=== PATIENT | male | born 1945 | race Caucasian/White ===

== ENCOUNTER → 2017-05-02 | Outpatient (CLI) | payer OTHER, MEDICARE ==
[2017-05-02 11:08] LABS: HEMATOCRIT 45.5 % (42-52); MEAN CORPUSCULAR HGB CONC 34.3 g/dl (32-36); MEAN PLATELET VOLUME 10.3 fL (7.4-10.4); PLATELET COUNT 308 K/uL (130-400); RED BLOOD COUNT 4.46 M/uL (4.7-6.1); WHITE BLOOD COUNT 4.54 K/uL (4.8-10.8)
[2017-05-02 11:43] LABS: ESTIMATED AVERAGE GLUCOSE 108 mg/dl; HA1C FLAG Normal (Normal)
[2017-05-02 12:06] LABS: ALT/SGPT 26 U/L (12-78); AST/SGOT 22 U/L (15-37); BLOOD UREA NITROGEN 11 mg/dl (7-18); BUN/CREATININE RATIO 15.1 (10-20); CALCIUM 8.7 mg/dl (8.5-10.1); CARBON DIOXIDE 25 mmol/L (21-32); CHLORIDE 107 mmol/L (98-107); CREATININE 0.74 mg/dl (0.60-1.40); GLUCOSE 97 mg/dl (70-99); POTASSIUM 4.4 mmol/L (3.5-5.1); SODIUM 139 mmol/L (136-145)
[2017-05-02 12:19] LABS: CHOLESTEROL 199 mg/dl (0-200); CHOLESTEROL/HDL RATIO 3.6; HDL CHOLESTEROL 56 mg/dl; LDL CHOLESTEROL CALCULATED 120 mg/dl; PROSTATE SPECIFIC ANTIGEN 0.623 ng/ml (0.000-4.000); TRIGLYCERIDES 113 mg/dl (0-150); VERY LOW DENSITY LIPOPROT CALC 23 mg/dl
--- NOTE | 2017-05-09 08:05 | CODING QUERY MEDICAL NECESSITY ---
CQSUPPORTING DIAGNOSIS NEEDED A supporting diagnosis is required for the test/procedure performed on this patient in order for us to be reimbursed by the patient's insurance. Please provide a supporting diagnosis for the following test/procedure listed below next to the test name along with your signature. *If there is no additional diagnosis for this patient that would support the following test/procedure please document that below next to the test/procedure. Test(s)/Procedure(s) that require a supporting diagnosis: DOS 05/02/17 PROSTATE SPECIFIC TEST (PSA) Provider Signature: Date: Thank you Radha Alaniz Health Information Management Once completed, please kindly fax back to [phone] For questions please call [phone]
== END | disposition home or self-care (01) ==
LOC: C.LABBC 07:30
PROVIDERS: ATTEND Internal Medicine
DX: E78.00 Pure hypercholesterolemia, unspecified (principal); R73.9 Hyperglycemia, unspecified; M13.0 Polyarthritis, unspecified; E29.9 Testicular dysfunction, unspecified; I10 Essential (primary) hypertension; Z12.5 Encounter for screening for malignant neoplasm of prostate

== ENCOUNTER → 2018-04-11 | Outpatient (CLI) | payer OTHER ==
[2018-04-11 10:24] LABS: BASO % 0.2 %; BASO ABS # 0.01 K/uL (0-0.2); EOS % 4.9 %; EOS ABS # 0.24 K/uL (0-0.5); HEMOGLOBIN 15.3 g/dL (14.0-18.0); IG# 0.01 K/uL (0.00-0.02); LYMPH % 23.7 %; LYMPH ABS # 1.17 K/uL (1.2-3.4); MEAN CELL VOLUME 101.6 fL (80-100); MEAN CORPUSCULAR HEMOGLOBIN 34.5 pg (25-34); MEAN PLATELET VOLUME 10.1 fL (7.4-10.4); MONO % 12.8 %; MONO ABS # 0.63 K/uL (0.11-0.59); NEUT % 58.2 %; NEUT ABS # 2.87 K/uL (1.4-6.5); PLATELET COUNT 306 K/uL (130-400); RED CELL DISTRIBUTION WIDTH CV 12.8 % (11.5-14.5); WHITE BLOOD COUNT 4.93 K/uL (4.8-10.8)
[2018-04-11 13:27] LABS: ALT/SGPT 24 U/L (12-78); AST/SGOT 25 U/L (15-37); BLOOD UREA NITROGEN 12 mg/dl (7-18); CALCIUM 9.2 mg/dl (8.5-10.1); CARBON DIOXIDE 29 mmol/L (21-32); CHOLESTEROL 200 mg/dl (0-200); CREATININE 0.72 mg/dl (0.60-1.40); GLUCOSE 99 mg/dl (70-99); LDL CHOLESTEROL CALCULATED 124 mg/dl; POTASSIUM 4.3 mmol/L (3.5-5.1); SODIUM 139 mmol/L (136-145)
== END | disposition home or self-care (01) ==
LOC: C.LABBC 08:59
PROVIDERS: ATTEND Internal Medicine
DX: D75.89 Other specified diseases of blood and blood-forming organs (principal); R73.9 Hyperglycemia, unspecified; E78.00 Pure hypercholesterolemia, unspecified

== ENCOUNTER 2023-05-12 07:39 | Observation (INO) ==
--- NOTE | 2023-04-21 10:18 | PAT Medication Instructions ---
Medication Instructions Date of Service April 21, 2023 Home Medications Medication Instructions Recorded labetalol 200 mg tablet 200 - 300 mg PO AMPM #360 Tabs 02/10/23 tadalafil 20 mg tablet 20 mg PO PRN #12 tabs 02/10/23 tramadol 50 mg tablet 50 mg PO Q4H PRN pain #180 tabs 03/29/23 Wheeled Walker #1 ea 04/19/23 labetalol 200 mg tablet 200 - 300 mg PO AMPM tadalafil 20 mg tablet 20 mg PO PRN tramadol 50 mg tablet 50 mg PO Q4H PRN pain STOP taking 24 hours before surgery tadalafil 20 mg tablet 20 mg PO PRN Take morning of surgery With a small sip of water, OTHERWISE NOTHING TO EAT OR DRINK AFTER MIDNIGHT: labetalol 200 mg tablet 200 - 300 mg PO AMPM tramadol 50 mg tablet 50 mg PO Q4H PRN pain (if needed) Take evening before surgery labetalol 200 mg tablet 200 - 300 mg PO AMPM tramadol 50 mg tablet 50 mg PO Q4H PRN pain (if needed) Other Notes If you have any questions please call us at [phone] or [phone] or [phone] or [phone]
--- NOTE | 2023-04-26 08:49 | Anesthesiology Consultation ---
Date of Service April 26, 2023 Assessment & Plan (1) Encounter for pre-operative examination: - Outpatient joint assessment: Patient is currently scheduled for inpatient pathway. If re-evaluated and patient/surgeon requests outpatient pathway, patient is not recommended candidate for outpatient joint program from anesthesia standpoint. Chart Review Chart Review: Acceptable Risk for Surgery and Patient NOT seen in Pre Admission Testing Teaching & Discussion Pre-Anesthesia Teaching/Discussion Notes: Instructed NPO after midnight before surgery, except medications with 15 cc of water. Medication instructions provided according to the PAT guidelines. History Surgery Operation Date: 05/12/23 12:50 Proposed Procedures p Left Total Knee Arthroplasty - Reji Bess, Height/Weight Height: 5 ft 8 in Weight: 75 kg Allergies Allergy/AdvReac Type Severity Reaction Status Date / Time No Known Drug Allergies Allergy Unknown Verified 04/21/23 09:28 Medications Home Medications Medication Instructions Recorded Confirmed Last Taken labetalol 200 mg tablet 200 - 300 mg PO AMPM #360 Tabs 02/10/23 04/21/23 Unknown tadalafil 20 mg tablet 20 mg PO PRN #12 tabs 02/10/23 04/21/23 Unknown tramadol 50 mg tablet 50 mg PO Q4H PRN pain #180 tabs 03/29/23 04/21/23 Unknown Wheeled Walker #1 ea 04/19/23 04/19/23 Unknown Past Medical History Medical History (Updated 04/26/23 @ 09:05 by Sharon Gurrola PA-C) HTN (hypertension) controlled, stable per pt Hyperlipidemia no meds Prediabetes Patient denies h/o stroke, seizures, heart attack, heart failure, blood clots or blood transfusions. Exercise / Class Metabolic Activity II 4-5 Yardwork/Stairs/Walk up hill (denies chest discomfort or shortness of breath with 1 FOS) Past Family History Family History Mother Alzheimer disease Arthritis Dyslipidemia Father Myocardial infarction Brother Myocardial infarction Uncle Myocardial infarction Denies family history of Ovarian cancer Prostate cancer Breast cancer Colorectal cancer Past Surgical History Surgical History H/O oral surgery Hx of colonoscopy S/P vasectomy Past Anesthesia History No Hx of Anesthesia Complications and No Family Hx of Anesthesia Complications History of PONV No Hx of PONV and No Hx of Motion Sickness Social History Smoking Status: Never smoker Do You Dip or Chew Tobacco: No Hx Alcohol Use: Yes Alcohol type: wine alcohol intake frequency: a few times a week Hx Substance Use: No substance use type: does not use Review of Systems Patient denies chest pain, shortness of breath, dyspnea on exertion, snoring, witnessed apneas, reflux, fever, chills, cough, wheezing, or palpitations. Physical Exam Vital Signs Vitals BP 144/93 P 70 TEMP 98.2 SP02 96% on RA RESP 17 Physical Full cervical extension range of motion without pain TMD 3.5 finger breadths Mallampati Score 2 Dentition: multiple upper right and left implants, multiple crowns, denies chipped or loose teeth, caps or bridges Lungs: normal respiratory effort. Good air movement, clear throughout to auscultation, no adventitious breath sounds Cardiac: regular rate and rhythm, no murmurs noted Carotid arteries: negative bruit bilat Lab Results Anesthesia Preop Results Results Anesthesia Widget: WBC 4.32 K/ul (4.8-10.8) L 04/26/23 Hgb 14.2 g/dl (14.0-18.0) 04/26/23 Hct 41.5 % (42.0-52.0) L 04/26/23 Plt 321 K/uL (130-400) 04/26/23 Na 137 mmol/L (136-145) 04/26/23 K 4.4 mmol/L (3.5-5.1) 04/26/23 Cl 104 mmol/L (98-107) 04/26/23 CO2 29 mmol/L (21-32) 04/26/23 BUN 11 mg/dl (6-23) 04/26/23 Creat 0.70 mg/dl (0.6-1.4) 04/26/23 Glucose Level 105 mg/dl (70-99(Fasting)) H 04/26/23 PT 11.4 Seconds (9.0-12.0) 04/26/23 PTT 26.6 Seconds (21.0-31.0) 04/26/23 INR 1.0 (0.9-1.1) 04/26/23 Blood Type A Positive 04/26/23 Antibody Screen NEGATIVE 04/26/23 Testing Electrocardiogram Date: 04/26/23 NSR, rate 69 bpm Left axis deviation Nonspecific intra-ventricular conduction block Chest X-Ray Date: 04/26/23 No active disease in the chest
[~2023-05-12 07:39] MED LIST: ACETAMINOPHEN 500 MG TAB PO SCH; FAMOTIDINE 20 MG TAB PO SCH; GABAPENTIN 300 MG CAP PO SCH; LR 500ML BOLUS, THEN 15ML/HR IV SCH; LR 60ML/HR IV SCH; ORTHO JOINT MIX INFIL SCH; ROPIVACAINE 0.5% 5 MG/ML 30 ML VIAL ONE; TRANEXAMIC ACID 1,000 MG **IV Intra-op IV SCH; TRANEXAMIC ACID 1,000 MG **IV Pre-op IV SCH; ceFAZolin 2000MG 2,000 MG/15 ML SYR IV SCH; dexAMETHasone 4 MG TAB PO SCH
[2023-05-12] MEDS ORDERED: MIDAZOLAM HCL 1 MG/ML 2ML VIAL ONE (07:57)
[2023-05-12] MEDS ORDERED: fentaNYL citrate PF 100 MCG/2 ML VIAL ONE (07:57)
[2023-05-12] MEDS ORDERED: DEXAMETHASONE SOD INJ 4 MG/ML VIAL ONE (07:58)
[2023-05-12] MEDS ORDERED: PROPOFOL IV EMULSION 10 MG/ML 20 ML VIAL IV ONE ×4 (07:58)
[2023-05-12] MEDS ORDERED: ONDANSETRON INJ 2 MG/ML 2 ML VIAL ONE (07:58)
--- NOTE | 2023-05-12 08:07 | History & Physical Bridge Note ---
Date of Service May 12, 2023 History & Physical Bridge Note I have examined the patient, reviewed the History & Physical and in the interval since the performance of the History & Physical I have noted the following changes of clinical significance: no changes noted
[2023-05-12] MEDS ORDERED: ORTHO JOINT ANESTHETIC ONE (08:30)
[2023-05-12] MEDS ORDERED: HYDROmorphone INJ 1 MG/ML SYRINGE IV PRN (08:46)
[2023-05-12] MEDS ORDERED: ePHEDrine sulfate 50 MG/ML AMP IV PRN (08:46)
[2023-05-12] MEDS ORDERED: ATROPINE SULFATE 0.1 MG/ML 10ML SYR IV PRN (08:46)
[2023-05-12] MEDS ORDERED: ONDANSETRON INJ 2 MG/ML 2 ML VIAL IV PRN ×2 (08:46→11:39)
[2023-05-12] MEDS ORDERED: KETOROLAC 30 MG/ML VIAL IV PRN (08:46)
[2023-05-12] MEDS ORDERED: KETAMINE 50 MG/5 ML SYRINGE ONE (09:08)
[2023-05-12] MEDS ORDERED: GLYCOPYRROLATE 0.2 MG/ML VIAL ONE (09:42)
--- NOTE | 2023-05-12 10:16 | Operative Report ---
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 Post-Op Diagnosis: Left Knee Degeneartive Joint Disease I identified the patient and participated in the time-out.: Yes Procedure Operation Date: 05/12/23 09:00 Actual Procedures p Left Total Knee Arthroplasty, Cemented(Left) - Reji Bess DO Surgeon Reji Bess DO Underwriting Analyst Reji Garnica PA-C Estimated Blood Loss 30 Findings Consistent with Post-Op Diagnosis Specimens Left femoral tibial bone Description of Procedure Implants used: I used a Jhonathan Persona total knee arthroplasty system with a size 8 standard PS femur, F tibia with a 30 mm stem extension, 34 oval patella, and a size 14 CPS polyethylene bearing. All components were cemented in place with Biomet cement. Ajit seals [facility] for the above procedure. He was seen in the preoperative holding area and the operative extremity was identified and signed. He was given a preoperative antibiotic, TXA, a spinal anesthetic and an adductor nerve block. He was taken back to the operating room and laid on the table in supine position. He was given basic sedation. The operative knee was then prepped and draped in sterile fashion. A timeout was done, and the patient and the operative extremity was properly identified. A midline incision was made directly over the patella. Dissection was taken down to the extensor mechanism. A midvastus arthrotomy was used. The medial retinaculum was released and the fat pad was mostly excised. The knee was flexed and the ACL, PCL, and meniscus were removed. A drill was sent down the center of the femoral canal followed by an intramedullary gurmeet. Off that gurmeet a distal femoral cutting block was placed. 9 mm was resected off the distal femur at 5 of valgus. A posterior referencing AP sizing guide was then placed on the distal femur. The femur measured to be a size 8. 2 drill holes were placed in 3 of external rotation. A 4-in-1 cutting block was then impacted into place. Anterior, posterior, and chamfer cuts were then made. The proximal tibia was then exposed. An external tibial alignment guide was placed. A tibial cut guide was then anchored in place and the proximal tibia was then resected. The posterior aspect of the knee was then opened up and any additional meniscus fragments and osteophytes were removed. The tibia measured to be a size F. The tibial plate was then placed in the appropriate rotation and the tibia was drilled and punched. Trial components were then placed. I used a size 14 CPS polyethylene insert. The knee was brought through a full range of motion and felt to be stable. The peg holes for the femoral component were then drilled. The patella was then everted and 9 mm was resected off the posterior aspect of the patella. The patella measured to be a size 34 oval. 3 peg holes were then drilled. A trial patella was placed. The knee was once again brought through a full range of motion and felt to be stable. Trial components were then removed. The surrounding soft tissues were injected with 100 cc of an orthopedic pain control cocktail. All components were then cemented into place with Biomet cement. The final polyethylene insert was then snapped into place. Once cement was dry the tourniquet was deflated. Hemostasis was obtained. Surgiphor Betadine lavage was used throughout the case. The joint was then irrigated with normal saline solution. The midvastus arthrotomy was then closed with #1 Vicryl suture. The skin was closed with 2-0 Vicryl, 3-0V lock suture, and bea. A soft compressive dressing was placed. He was then transferred to a hospital bed and taken to the postanesthesia care unit in stable condition. He tolerated the procedure well. Reji Garnica PA-C, was present for the entire procedure. He was critical for patient positioning, prepping, draping, retraction exposure, wound closure and application of sterile dressing. I attest to the content of the Intraoperative Record and any orders documented therein. Any exceptions are noted below.
--- NOTE | 2023-05-12 11:24 | XRay Report ---
XR knee LT 1 or 2V routine HISTORY: 78 years-old Male Surgical Post Op left knee arthroplasty COMPARISON: 04/19/2023 TECHNIQUE: 2 views of the left knee FINDINGS: Total joint arthroplasty with patellar resurfacing. Anterior midline skin bea with expected posto perative soft tissue swelling with deep tissue air. Unchanged metallic density foreign body of the la teral calf. IMPRESSION: Total joint arthroplasty with expected postoperative changes. ACT 112: Negative or not required by law. The above report was generated using voice recognition software. It may contain grammatical, syntax o r spelling errors. Electronically signed by: Kaiden Bess M.D. 05/12/2023 11:23 AM
--- NOTE | 2023-05-12 11:26 | Anesthesiology Progress Note ---
Date of Service May 12, 2023 Anesthesia Post Procedure Vital Signs Vital Signs: Temp Pulse Pulse Resp BP Pulse Ox O2 Del Method 05/12/23 11:10 36.2 C L 81 12 119/79 97 Nasal Cannula 05/12/23 11:00 77 20 122/76 95 Nasal Cannula 05/12/23 10:50 76 20 107/69 95 Nasal Cannula 05/12/23 10:40 56 L 18 123/76 97 Nasal Cannula 05/12/23 10:39 36.2 C L 79 20 86/66 L 97 Nasal Cannula 05/12/23 07:59 36.7 C 68 18 139/83 96 Room Air O2 Flow Rate 05/12/23 11:10 2 05/12/23 11:00 2 05/12/23 10:50 2 05/12/23 10:40 2 05/12/23 10:39 2 05/12/23 07:59 Pain Intensity Left Knee: Pain Intensity: 3 Transfer of Care Handoff Completed per policy Notes Mental Status: alert / awake / arousable Patient Amnestic to Procedure: Yes Nausea / Vomiting: adequately controlled Pain: adequately controlled Airway Patency, RR, SpO2: stable & adequate BP & HR: stable & adequate Hydration State: stable & adequate Neuraxial Anesthesia: was administered and sensory block is resolving Anesthetic Complications: no major complications apparent
[2023-05-12] MEDS ORDERED: METOCLOPRAMIDE HCL INJ 5 MG/ML 2 ML VIAL IV PRN (11:39)
[2023-05-12] MEDS ORDERED: MAGNESIUM HYDROXIDE SUSP 30 ML UDC PO PRN (11:39)
[2023-05-12] MEDS ORDERED: bisacodyL 10 MG SUPP PR PRN (11:39)
[2023-05-12] MEDS ORDERED: NALOXONE HCL 0.4 MG/1 ML VIAL/CARP IV PRN (11:39)
[2023-05-12] MEDS ORDERED: HYDROmorphone INJ 0.5 MG/0.5 ML SYR IV PRN (11:39)
[2023-05-12] MEDS: SODIUM CHLORIDE 0.9% 1000ML 1,000 ML IV SCH ×2 (11:56→20:30)
[2023-05-12] MEDS: LABETALOL HCL 200 MG TAB PO SCH (12:19)
[2023-05-12] MEDS: KETOROLAC TROMETHAMINE 15 MG/ML VIAL IV SCH ×2 (12:20→17:13)
[2023-05-12] MEDS: ACETAMINOPHEN 500 MG TAB PO SCH ×2 (13:45→21:25)
[2023-05-12] MEDS: oxyCODONE HCL IR 5 MG TAB (IMMEDIATE RELEASE) PO PRN (16:36)
[2023-05-12] MEDS: ceFAZolin 2000MG 2,000 MG/15 ML SYR IV SCH (16:38)
[2023-05-12] MEDS: ASPIRIN 81 MG ECTAB PO SCH (20:27)
[2023-05-12] MEDS: DOCUSATE SODIUM 100 MG CAP PO SCH (20:28)
[2023-05-12] MEDS ORDERED: LABETALOL HCL 200 MG TAB PO SCH (21:00)
[2023-05-12] MEDS ORDERED: SENNA 8.6 MG TAB PO SCH (21:00)
[2023-05-13] MEDS: KETOROLAC TROMETHAMINE 15 MG/ML VIAL IV SCH ×2 (00:04→06:00)
[2023-05-13] MEDS: ceFAZolin 2000MG 2,000 MG/15 ML SYR IV SCH (00:56)
[2023-05-13] MEDS: oxyCODONE HCL IR 5 MG TAB (IMMEDIATE RELEASE) PO PRN ×2 (03:49→09:44)
[2023-05-13] MEDS: ACETAMINOPHEN 500 MG TAB PO SCH (05:59)
--- NOTE | 2023-05-13 06:53 | Orthopedic Progress Note ---
Date of Service May 13, 2023 Assessment & Plan (1) Status post left knee replacement: Overall he is doing very well. He is not having much pain in the left knee. He will be seen by physical therapy today for ambulation and range of motion exercises. The nursing staff can change his dressing after physical therapy today. He is on aspirin for DVT prophylaxis. He can be discharged home later today. He will follow-up with orthopedics in 2 weeks. Gavin Fong was seen and examined at bedside this morning. Overall is doing very well. Is not having much pain in the left knee. He has been up and ambulating to the bathroom. Has no complaints.. Review of Systems All systems reviewed & are unremarkable except as noted in HPI & below. Physical Exam On physical examination of left knee, the dressing is clean and dry. He has active dorsiflexion plantarflexion of his left ankle.. Results & Data Results & Data Laboratory Results . Diagnostic Findings Postoperative x-rays of the left knee show the prosthesis to be in anatomic alignment without any evidence of fracture, desiccation, or loosening.. PG Care Time/CCT Total # of Minutes Spent Total Time Spent with Patient: Total time spent is greater than 50% in coordination of care (as documented) at patient's floor/unit and/or counseling patient: Coding Level of Care Code 13720 Post Operative Follow-Up Diagnoses Status post left knee replacement Z96.652
--- NOTE | 2023-05-13 06:54 | Discharge Summary ---
Date of Service May 13, 2023 Principal Diagnosis Same as "Discharge Diagnosis" noted below under Discharge Instructions. Discharge Exam On physical examination of left knee, the dressing is clean and dry. He has active dorsiflexion plantarflexion of his left ankle.. Discharge Data Procedures Performed Operation Date: 05/12/23 09:00 Actual Procedures p Left Total Knee Arthroplasty, Cemented(Left) - Reji Bess DO Ordered Studies 05/12/23 05:00 US - OR guided needle placemen Routine Hospital Course (1) Status post left knee replacement: On May 13, 2023 Ajit arrived at [facility] and underwent a left knee replacement without complication. He had a spinal anesthetic. Postoperatively he was started on aspirin for DVT prophylaxis and transferred to the general orthopedic floors. His hospital course was uneventful. On postop day #1, his vital signs were stable and his pain was well controlled. He was able to participate well with physical therapy doing ambulation and range of motion exercises. He was then discharged home. He will follow-up with orthopedics in 2 weeks. PG Care Time/CCT Total # of Minutes Spent Total Time Spent with Patient: Total time spent is greater than 50% in coordination of care (as documented) at patient's floor/unit and/or counseling patient: Discharge Plan Discharge Items Patient Disposition: Home - Home Health Services Reason For Visit: Left Knee Degeneartive Joint Disease Discharge Diagnosis: Left knee replacement Activity: Per Instructions section Non-emergency contact: Surgeon Call non-emergency contact if: your wound has increased redness and your wound has increased drainage Follow-up/Referrals: Pro,Ish Zhu MD [Primary Care Provider] - Diet: Regular Addtl Attending Provider Instructions: Activity and Therapy Recommendations: * If you are using [facility] then therapy will be provided at your home until they feel you have accomplished all of your goals. * If you are using [facility] then Physical Therapy will be provided until they feel you are ready to start Outpatient Physical Therapy. * If you are not using home therapy then Outpatient Physical Therapy should start about 3-5 days from your day of surgery. Therapy will last about 6-10 weeks * It is important not to put a pillow under your knee when you are relaxing or sleeping. It is just as important to make sure you are getting your knee perfectly straight as it is to regain your knee bend. * You were shown a series of exercises in the hospital. Do these exercises three times each day including the exercises you were shown in physical therapy. * Get up and walk several times each day. For the first four weeks, try not to stand or walk for more than one hour at a time. If you do stand or walk for more than one hour, you will not hurt anything, but your leg will likely swell. * As you feel comfortable, you may change from the walker or crutches to a cane and then to independent walking. Medications: * Narcotic You will likely be sent home from the hospital with a prescription for the narcotic pain medication that worked best throughout your stay. * Aspirin Most patients will be required to take Aspirin 81mg twice a day for 6 weeks after surgery. This is obtained [id number] and a prescription is not necessary. * Other medications may be prescribed for specific circumstances. If you have any questions, please call the office at . * Resume previous home medications unless otherwise instructed TEDs/Elastic Stockings: The white elastic stockings help limit swelling and prevent blood clots from forming in your legs.~ The more you wear them, the more they work. Wear them for six weeks. Dressing Care: The dressing can be changed after physical therapy on postop day #1. Daily dry dressing changes for a few days, especially if the incision is still draining some. If the incision is not draining then you may leave the bea open to air. If there is a little bit of drainage or if the bea are getting stuck on your clothing then cover the incision with a dry dressing. The bea will be removed at your 2 week follow-up appointment. Showering: You may shower 5 days from the day of surgery as long as the incision is no longer draining. You may shower with the bea exposed. Let soapy water run over the bea and pat them dry. Do not scrub or soak the incision. Things To Watch For: * Drainage from the incision site that occurs more than one week after your surgery. * Increased redness at the incision site. * Fever above 102 degrees Fahrenheit. * Unusual chest pain or shortness of breath. * Call [facility] at with any of the above problems Follow-Up Visit: Follow-up with Dr. Bess's PA (Reji Garnica) 2-3 weeks after your day of surgery. He will remove your bea and answer any questions. If you have any additional questions or concerns, Dr Bess is usually in the office at the same time and will be available An appointment was probably scheduled when you signed-up for surgery in the office. If you have any questions call Office Instructions: More detailed instructions as well as Frequently Asked Questions were provided in a folder by our office when you signed-up for surgery. Please review these instructions when you get home. If you have any further questions or concerns, please feel free to call the office at [phone] Pending Studies at Discharge: No Stand-Alone Forms: My [facility] Aula [address], Smoking Cessation Medications and DC Order Prescriptions: New oxycodone 5 mg Tablet 5 mg PO Q4H PRN (Reason: pain) Qty: 30 0RF aspirin 81 mg Tablet,Delayed Release (Dr/Ec) 81 mg PO BID 42 Days Qty: 0 0RF Continued tadalafil 20 mg tablet 20 mg PO PRN Qty: 12 11RF Rx Instructions: Take 1 tablet 1 hour before activity as needed tramadol 50 mg tablet 50 mg PO Q4H PRN (Reason: pain) Qty: 180 0RF labetalol 200 mg tablet 200 - 300 mg PO AMPM Qty: 360 3RF Rx Instructions: Take 300mg in the AM Take 200mg in the PM (DME) Wheelbess Walker Misc See Rx Instructions .MEDSUPPLY Qty: 1 0RF Rx Instructions: As directed Admission Data Admit Date/Time: 05/12/23 10:43 Attending Provider: Reji Bess Admit Provider: Reji Bess Primary Care Provider: Ish Tian
[2023-05-13] MEDS: LABETALOL HCL 200 MG TAB PO SCH (07:40)
[2023-05-13] MEDS: DOCUSATE SODIUM 100 MG CAP PO SCH (07:40)
[2023-05-13] MEDS: ASPIRIN 81 MG ECTAB PO SCH (07:40)
[2023-05-13] MEDS ORDERED: dexAMETHasone 4 MG TAB PO SCH (08:00)
[2023-05-13] MEDS ORDERED: MULTIVITAMIN TAB PO SCH (09:00)
== END 2023-05-13 11:00 | disposition home or self-care (01) ==
LOC: 3E 07:39 → ASU 07:39